=== PATIENT | female | born 1990 | race Caucasian/White ===

== ENCOUNTER 2017-12-08 20:33 | Inpatient (IN) ==
[2017-12-08] MEDS ORDERED: BUTORPHANOL 2 MG/ML VIAL IV PRN (20:48)
[2017-12-08 21:33] LABS: Basophils % 0.3 % (0.0-0.8); Eosinophils # 0.1 10*3/uL (0.0-0.87); Eosinophils % 1.2 % (0.00-10.9); Hematocrit 33.5 VOL% (35.7-47.0); Hemoglobin 11.1 GM/DL (12.0-16.0); Immature Granulocytes % 0.9 %; Immature Granulocytes Absolute 0.09 #; Lymphocytes # 2.1 10*3/uL (1.4-4.0); Lymphocytes % 20.3 % (21.3-54.2); Mean Corpuscular HGB Conc 33.1 GM/DL (32-36); Mean Corpuscular Hemoglobin 31 PG (27-34); Mean Corpuscular Volume 94.1 FL (87-102); Mean Platelet Volume 11.4 FL (9.6-12.0); Monocytes # 0.7 10*3/uL (0.11-0.8); Monocytes % 7.2 % (1.7-12.7); Neutrophils # 7.1 10*3/uL (1.4-7.4); Neutrophils % 70.1 % (38.7-73.9); Platelet Count 292 T/CUMM (130-400); Red Blood Count 3.56 MC/CUMM (3.8-5.5); Red Cell Distribution Width 13.3 % (9.3-17.3); White Blood Count 10.1 T/CUMM (4-12)
[2017-12-08 22:11] LABS: Albumin 2.9 G/DL (3.4-5.0); Bilirubin,Total 0.4 MG/DL (0.2-1.0); Calcium 9.2 MG/DL (8.5-10.1); Osmolality,Calculated 273.5 MOS/KG (273-304); Potassium 3.7 MMOL/L (3.5-5.1)
[2017-12-08] MEDS ORDERED: hydrALAZINE 20 MG/1 ML VIAL IV PRN (22:26)
[2017-12-08] MEDS: LABETALOL 100 MG TABLET PO SCH (22:35)
[2017-12-08 23:20] LABS: INR 0.9; PT Patient Result 9.3 SECS; Partial Thromboplastin Time 24.9 SECS (0-40)
[2017-12-09] MEDS: LACTATED RINGERS 1,000 ML IV SCH ×4 (00:01→22:11)
[2017-12-09] MEDS ORDERED: diphenhydrAMINE CAP 50 MG CAPSULE PO PRN (03:00)
[2017-12-09] MEDS: MEPERIDINE 50 MG/1 ML VIAL IV PRN ×4 (05:10→22:12)
[2017-12-09] MEDS: ONDANSETRON 4 MG/2 ML VIAL IV PRN ×3 (05:11→22:11)
[2017-12-09] MEDS: LABETALOL 100 MG TABLET PO SCH ×2 (09:52→21:08)
[2017-12-10] MEDS ORDERED: OXYTOCIN/LR 20 UNIT/1,000 ML BAG IV SCH (06:00)
[2017-12-10] MEDS: ONDANSETRON 4 MG/2 ML VIAL IV PRN (07:26)
[2017-12-10] MEDS: MEPERIDINE 50 MG/1 ML VIAL IV PRN (07:28)
[2017-12-10] MEDS ORDERED: CITRIC ACID/SODIUM CITRATE 30 ML UDCUP PO ONE (07:59)
[2017-12-10] MEDS ORDERED: FAMOTIDINE 20 MG/2 ML VIAL IV ONE (07:59)
[2017-12-10] MEDS ORDERED: LACTATED RINGERS 1,000 ML IV ONE (07:59)
[2017-12-10] MEDS ORDERED: hydrOXYzine HCL 25 MG/1 ML VIAL IM PRN (08:00)
[2017-12-10] MEDS ORDERED: PROMETHAZINE 25 MG/1 ML VIAL IM ONE (08:00)
[2017-12-10] MEDS ORDERED: fentaNYL 2 MCG/ROPIV 0.2% EPID 150 ML EPIDURAL SCH (08:00)
[2017-12-10] MEDS ORDERED: diphenhydrAMINE 50 MG/1 ML VIAL IV PRN ×2 (08:00)
[2017-12-10] MEDS ORDERED: ePHEDrine 50 MG/ML AMP IV PRN (08:00)
[2017-12-10] MEDS: LABETALOL 100 MG TABLET PO SCH ×2 (09:13→21:41)
[2017-12-10] MEDS ORDERED: miSOPROStol 200 MCG TABLET ONE (10:02)
[2017-12-10] MEDS ORDERED: BENZOCAINE 20%/MENTHOL 0.5% SPRAY 56 GM CAN TOP PRN (10:54)
[2017-12-10] MEDS ORDERED: ACETAMINOPHEN 325 MG TABLET PO PRN (10:54)
[2017-12-10] MEDS ORDERED: WITCH HAZEL PADS 100/JAR TOP PRN (10:54)
[2017-12-10] MEDS ORDERED: RHO(D) IMMUNE GLOBULIN 300 MCG SYRINGE IM ONE (10:54)
[2017-12-10] MEDS ORDERED: DIPH/TET/ACEL PERT BOOSTER VACCINE 0.5 ML VIAL IM ONE (10:54)
[2017-12-10] MEDS ORDERED: ONDANSETRON 4 MG/2 ML VIAL IV PRN (10:54)
[2017-12-10] MEDS ORDERED: oxyCODONE/ACETAMINOPHEN 5-325 MG TABLET PO PRN (10:54)
[2017-12-10] MEDS ORDERED: MEASLES/MUMPS/RUBELLA VACCINE 0.5 ML VIAL SUBCUT ONE (10:54)
[2017-12-10] MEDS ORDERED: LANOLIN 50% CREAM 0.3 OZ TUBE TOP PRN (10:54)
[2017-12-10] MEDS ORDERED: OXYTOCIN/LR 20 UNIT/1,000 ML BAG IV ONE (10:54)
[2017-12-10] MEDS ORDERED: BISACODYL 10 MG SUPP RECTAL PRN (10:54)
[2017-12-10] MEDS ORDERED: HYDROCORTISONE 2.5% RECTAL CREAM 30 GM TUBE TOP PRN (10:54)
[2017-12-10 12:13] LABS: Apearance,Urine CLEAR (Clear); Bacteria,Urine Occasional /HPF (Few); Bilirubin,Urine Negative (Negative); Blood, Urine Small mg/dL (Negative); Glucose,Urine (UA) Negative (Negative); Ketones,Urine 20 mg/dL (Negative); Mucus,Urine Occasional /LPF (Occasional); Nitrite,Urine Negative (Negative); Protein,Urine Negative; RBC,Urine 1 /HPF (0-4); Squamous Epithelial Cell,Urine Occasional /HPF (0-10); Urine Color Yellow (Yellow); Urine Specific Gravity 1.009 (1.001-1.035); Urine Urobilinogen < 2.0 EU/DL (0.2-1.0); WBC,Urine 1 /HPF (0-6)
[2017-12-10] MEDS: IBUPROFEN 800 MG TABLET PO PRN (15:58)
[2017-12-10] MEDS: oxyCODONE/ACETAMINOPHEN 5-325 MG TABLET PO PRN (21:41)
[2017-12-10] MEDS: DOCUSATE SODIUM 100 MG CAPSULE PO SCH (21:41)
[2017-12-11] MEDS: oxyCODONE/ACETAMINOPHEN 5-325 MG TABLET PO PRN ×3 (05:41→17:52)
[2017-12-11 06:45] LABS: Basophils % 0.3 % (0.0-0.8); Eosinophils # 0.1 10*3/uL (0.0-0.87); Eosinophils % 0.9 % (0.00-10.9); Hematocrit 26.7 VOL% (35.7-47.0); Hemoglobin 9.1 GM/DL (12.0-16.0); Immature Granulocytes % 0.9 %; Lymphocytes # 1.7 10*3/uL (1.4-4.0); Lymphocytes % 15.6 % (21.3-54.2); Mean Corpuscular HGB Conc 34.1 GM/DL (32-36); Mean Corpuscular Hemoglobin 31 PG (27-34); Mean Corpuscular Volume 92.1 FL (87-102); Mean Platelet Volume 11.4 FL (9.6-12.0); Monocytes # 0.9 10*3/uL (0.11-0.8); Monocytes % 8.1 % (1.7-12.7); Neutrophils # 7.9 10*3/uL (1.4-7.4); Neutrophils % 74.2 % (38.7-73.9); Platelet Count 227 T/CUMM (130-400); Red Cell Distribution Width 13.5 % (9.3-17.3); White Blood Count 10.7 T/CUMM (4-12)
[2017-12-11] MEDS: DOCUSATE SODIUM 100 MG CAPSULE PO SCH ×2 (08:55→21:21)
[2017-12-11] MEDS: LABETALOL 100 MG TABLET PO SCH ×2 (08:55→21:20)
[2017-12-11] MEDS: IBUPROFEN 800 MG TABLET PO PRN ×2 (11:42→17:52)
[2017-12-12] MEDS: oxyCODONE/ACETAMINOPHEN 5-325 MG TABLET PO PRN ×2 (04:13→10:40)
[2017-12-12 08:30] VITALS: BP 130/76
[2017-12-12] MEDS: LABETALOL 100 MG TABLET PO SCH (09:12)
[2017-12-12] MEDS: DOCUSATE SODIUM 100 MG CAPSULE PO SCH (09:12)
[2017-12-12] MEDS: IBUPROFEN 800 MG TABLET PO PRN (10:40)
== END 2017-12-12 12:00 | disposition home or self-care (01) | DRG 560 ==
LOC: N.LDOUT 20:33 → N.LD 20:40 → N.OB 12-10 13:31
PROVIDERS: ADMIT Specialist; ATTEND Specialist

== ENCOUNTER 2017-12-15 07:46 | Inpatient (IN) ==
[2017-12-15] MEDS ORDERED: SODIUM CHLORIDE 0.9% 1,000 ML IV STA (07:55)
[2017-12-15] MEDS ORDERED: FUROSEMIDE 40 MG/4 ML VIAL IV STA (08:12)
[2017-12-15] MEDS ORDERED: FUROSEMIDE 40 MG/4 ML VIAL ONE (08:17)
[2017-12-15] MEDS ORDERED: VECURONIUM 10 MG VIAL IV STA (08:24)
[2017-12-15] MEDS ORDERED: ETOMIDATE 20 MG/10 ML VIAL IV ONE ×2 (08:29→11:29)
[2017-12-15] MEDS ORDERED: NITROGLYCERIN IV SCH (08:30)
[2017-12-15 08:31] LABS: Basophils % 0.3 % (0.0-0.8); Eosinophils # 0.3 10*3/uL (0.0-0.87); Eosinophils % 2.4 % (0.00-10.9); Hematocrit 30.7 VOL% (35.7-47.0); Hemoglobin 10.3 GM/DL (12.0-16.0); Immature Granulocytes % 0.8 %; Lymphocytes # 1.7 10*3/uL (1.4-4.0); Lymphocytes % 13.3 % (21.3-54.2); Mean Corpuscular HGB Conc 33.6 GM/DL (32-36); Mean Corpuscular Hemoglobin 31 PG (27-34); Mean Corpuscular Volume 93.3 FL (87-102); Mean Platelet Volume 10.8 FL (9.6-12.0); Monocytes # 0.6 10*3/uL (0.11-0.8); Monocytes % 4.8 % (1.7-12.7); Neutrophils # 9.8 10*3/uL (1.4-7.4); Neutrophils % 78.4 % (38.7-73.9); Platelet Count 359 T/CUMM (130-400); Red Blood Count 3.29 MC/CUMM (3.8-5.5); Red Cell Distribution Width 13.5 % (9.3-17.3); White Blood Count 12.5 T/CUMM (4-12)
[2017-12-15] MEDS ORDERED: MAGNESIUM SULF RIDER 4 GM in PREMIX 1 EACH IV STA (08:36)
[2017-12-15] MEDS ORDERED: MAGNESIUM SULF RIDER 100 ML IV ONE (08:41)
[2017-12-15] MEDS ORDERED: PROPOFOL 1,000 MG/100 ML BOTTLE IV ONE (08:41)
[2017-12-15 08:46] LABS: PT Patient Result 10.1 SECS; Partial Thromboplastin Time 27.6 SECS (0-40)
[2017-12-15] MEDS ORDERED: ACETAMINOPHEN 325 MG TABLET PO PRN (08:48)
[2017-12-15] MEDS ORDERED: ONDANSETRON 4 MG/2 ML VIAL IV PRN (08:48)
[2017-12-15] MEDS ORDERED: LABETALOL 20 MG/4 ML SYRINGE IV PRN (08:53)
[2017-12-15] MEDS ORDERED: hydrALAZINE 20 MG/1 ML VIAL IV PRN (08:53)
[2017-12-15] MEDS ORDERED: NITROGLYCERIN DRIP 50 MG/250 ML BOTTLE IV SCH (09:00)
[2017-12-15] MEDS ORDERED: DOCUSATE SODIUM 100 MG CAPSULE PO SCH (09:00)
[2017-12-15 09:05] LABS: Alanine Aminotransferase 14 U/L (13-56); Albumin 2.4 G/DL (3.4-5.0); Alkaline Phosphatase 108 U/L (45-117); Aspartate Amino Transferase 19 U/L (0-37); Bilirubin,Total < 0.39 MG/DL (0.2-1.0); Blood Urea Nitrogen 8 MG/DL (7-18); Calcium 8.4 MG/DL (8.5-10.1); Glucose 91 MG/DL (74-106); Osmolality,Calculated 270.8 MOS/KG (273-304); Sodium 137 MMOL/L (136-145); Total Protein 6.1 G/DL (6.4-8.3); Troponin I Only 0.065 NG/ML (0.00-0.045)
[2017-12-15] MEDS: PROPOFOL 1,000 MG/100 ML BOTTLE IV SCH ×3 (09:13→21:30)
[2017-12-15 09:21] LABS: ABG Base Excess -3.3 MMOL/L (-2.5-2.5); ABG HCO3 21.6 MMOL/L (20-26); ABG Oxygen Saturation 99.3 % (95-100); ABG PCO2 42.2 MM HG (35-48); ABG PH 7.333 (7.35-7.45); ABG TCO2 20.3 MMOL/L (23-27)
[2017-12-15 11:06] LABS: Apearance,Urine CLEAR (Clear); Bilirubin,Urine Negative (Negative); Blood, Urine Small mg/dL (Negative); Glucose,Urine (UA) Negative (Negative); Ketones,Urine Negative (Negative); Mucus,Urine Occasional /LPF (Occasional); Nitrite,Urine Negative (Negative); Protein,Urine Negative; RBC,Urine <1 /HPF (0-4); Urine Color Colorless (Yellow); Urine Specific Gravity 1.011 (1.001-1.035); Urine Urobilinogen < 2.0 EU/DL (0.2-1.0); WBC,Urine <1 /HPF (0-6)
[2017-12-15] MEDS ORDERED: VECURONIUM 10 MG VIAL IV ONE (11:29)
[2017-12-15] MEDS: MORPHINE 2 MG/1 ML SYRINGE IV PRN ×3 (11:59→23:00)
[2017-12-15] MEDS ORDERED: metOLazone 5 MG TABLET PO SCH (12:30)
[2017-12-15 12:42] LABS: Troponin I Only 0.467 NG/ML (0.00-0.045)
[2017-12-15] MEDS: VALSARTAN 80 MG TABLET PO SCH ×2 (13:38→21:49)
[2017-12-15] MEDS: PANTOPRAZOLE 40 MG VIAL IV SCH (13:38)
[2017-12-15] MEDS: ENOXAPARIN 40 MG/0.4 ML SYRINGE SUBCUT SCH (13:39)
[2017-12-15] MEDS: DOCUSATE SODIUM 100 MG/10 ML UDCUP PO SCH ×2 (13:39→21:49)
[2017-12-15] MEDS: SPIRONOLACTONE 25 MG TABLET PO SCH ×2 (13:40→21:49)
[2017-12-15] MEDS ORDERED: INFLUENZA VIRUS VACCINE 0.5 ML SYRINGE IM ONE (14:08)
[2017-12-15] MEDS ORDERED: PNEUMOCOCCAL VACCINE (23 VALENT) 0.5 ML VIAL IM ONE (14:30)
[2017-12-15] MEDS: METOPROLOL TARTRATE 25 MG TABLET PO SCH ×2 (15:43→21:49)
[2017-12-15] MEDS ORDERED: FUROSEMIDE 40 MG/4 ML VIAL IV SCH (16:00)
[2017-12-15 19:38] LABS: Troponin I Only 0.659 NG/ML (0.00-0.045)
[2017-12-16] MEDS: POTASSIUM CHLORIDE RIDER 10 MEQ in PREMIX 1 EACH IV PRN ×4 (03:10→08:02)
[2017-12-16] MEDS: MORPHINE 2 MG/1 ML SYRINGE IV PRN ×2 (03:15→07:10)
[2017-12-16 04:05] LABS: Allen Test Positive; Pt O2 Delivery Device Ventilator
[2017-12-16 04:08] LABS: ABG Base Excess 2.9 MMOL/L (-2.5-2.5); ABG HCO3 24.2 MMOL/L (20-26); ABG Oxygen Saturation 99.2 % (95-100); ABG PCO2 26.8 MM HG (35-48); ABG PH 7.573 (7.35-7.45)
[2017-12-16 04:09] LABS: ABG PO2 515.2 MM HG (80-95)
[2017-12-16] MEDS: PROPOFOL 1,000 MG/100 ML BOTTLE IV SCH ×2 (04:11→10:28)
[2017-12-16 04:31] LABS: Basophils % 0.2 % (0.0-0.8); Eosinophils # 0.2 10*3/uL (0.0-0.87); Eosinophils % 1.5 % (0.00-10.9); Hematocrit 29.5 VOL% (35.7-47.0); Hemoglobin 9.9 GM/DL (12.0-16.0); Immature Granulocytes % 0.9 %; Lymphocytes % 17.8 % (21.3-54.2); Mean Corpuscular HGB Conc 33.6 GM/DL (32-36); Mean Corpuscular Hemoglobin 31 PG (27-34); Mean Corpuscular Volume 92.5 FL (87-102); Mean Platelet Volume 10.6 FL (9.6-12.0); Monocytes % 9.1 % (1.7-12.7); Neutrophils # 7.9 10*3/uL (1.4-7.4); Neutrophils % 70.5 % (38.7-73.9); Platelet Count 350 T/CUMM (130-400); Red Blood Count 3.19 MC/CUMM (3.8-5.5); Red Cell Distribution Width 13.4 % (9.3-17.3); White Blood Count 11.3 T/CUMM (4-12)
[2017-12-16 05:06] LABS: Calcium 8.6 MG/DL (8.5-10.1); Osmolality,Calculated 277.5 MOS/KG (273-304); Potassium 3.7 MMOL/L (3.5-5.1); Risk Ratio 6.23
[2017-12-16] MEDS: DOCUSATE SODIUM 100 MG/10 ML UDCUP PO SCH ×2 (08:14→20:07)
[2017-12-16] MEDS: VALSARTAN 80 MG TABLET PO SCH ×2 (08:14→20:07)
[2017-12-16] MEDS: SPIRONOLACTONE 25 MG TABLET PO SCH ×2 (08:15→20:08)
[2017-12-16] MEDS: METOPROLOL TARTRATE 25 MG TABLET PO SCH ×2 (08:15→20:07)
[2017-12-16] MEDS: ASPIRIN CHEW 81 MG TABLET PO SCH (08:16)
[2017-12-16] MEDS: OMEGA 3 ACID ETHYL ESTERS 1 GM CAPSULE PO SCH ×2 (08:16→20:07)
[2017-12-16] MEDS: ENOXAPARIN 40 MG/0.4 ML SYRINGE SUBCUT SCH (08:17)
[2017-12-16] MEDS: PANTOPRAZOLE 40 MG VIAL IV SCH (08:17)
[2017-12-16] MEDS: FUROSEMIDE 40 MG/4 ML VIAL IV SCH ×2 (08:20→16:21)
[2017-12-16 08:59] LABS: ABG HCO3 26.2 MMOL/L (20-26); ABG Oxygen Saturation 99.7 % (95-100); ABG PCO2 36.6 MM HG (35-48); ABG PH 7.456 (7.35-7.45); ABG TCO2 23.2 MMOL/L (23-27)
[2017-12-16] MEDS ORDERED: ATORVASTATIN 40 MG TABLET PO SCH (21:00)
[2017-12-17 04:50] LABS: Basophils # 0.1 10*3/uL (0.0-0.2); Basophils % 0.5 % (0.0-0.8); Eosinophils # 0.3 10*3/uL (0.0-0.87); Eosinophils % 3.1 % (0.00-10.9); Hematocrit 33.7 VOL% (35.7-47.0); Hemoglobin 11.4 GM/DL (12.0-16.0); Immature Granulocytes % 1.5 %; Immature Granulocytes Absolute 0.16 #; Lymphocytes # 2.3 10*3/uL (1.4-4.0); Lymphocytes % 21.2 % (21.3-54.2); Mean Corpuscular HGB Conc 33.8 GM/DL (32-36); Mean Corpuscular Hemoglobin 31 PG (27-34); Mean Corpuscular Volume 90.8 FL (87-102); Mean Platelet Volume 10.6 FL (9.6-12.0); Monocytes % 9.5 % (1.7-12.7); Neutrophils % 64.2 % (38.7-73.9); Platelet Count 380 T/CUMM (130-400); Red Blood Count 3.71 MC/CUMM (3.8-5.5); Red Cell Distribution Width 13.5 % (9.3-17.3); White Blood Count 10.9 T/CUMM (4-12)
[2017-12-17 05:21] LABS: Calcium 8.8 MG/DL (8.5-10.1); Osmolality,Calculated 278.7 MOS/KG (273-304); Potassium 3.5 MMOL/L (3.5-5.1)
[2017-12-17] MEDS: FUROSEMIDE 40 MG/4 ML VIAL IV SCH ×2 (07:37→16:21)
[2017-12-17] MEDS ORDERED: ALBUTEROL/IPRATROPIUM 3 ML NEB RESP TX PRN (08:35)
[2017-12-17] MEDS: DOCUSATE SODIUM 100 MG/10 ML UDCUP PO SCH ×2 (09:37→21:55)
[2017-12-17] MEDS: VALSARTAN 80 MG TABLET PO SCH ×2 (09:37→21:55)
[2017-12-17] MEDS: SPIRONOLACTONE 25 MG TABLET PO SCH ×2 (09:37→21:56)
[2017-12-17] MEDS: METOPROLOL TARTRATE 25 MG TABLET PO SCH ×2 (09:38→21:55)
[2017-12-17] MEDS: OMEGA 3 ACID ETHYL ESTERS 1 GM CAPSULE PO SCH ×2 (09:38→21:56)
[2017-12-17] MEDS: ENOXAPARIN 40 MG/0.4 ML SYRINGE SUBCUT SCH (09:38)
[2017-12-17] MEDS: ASPIRIN CHEW 81 MG TABLET PO SCH (09:38)
[2017-12-17] MEDS: LEVOFLOXACIN 750 MG TABLET PO SCH (09:53)
[2017-12-17] MEDS ORDERED: ATORVASTATIN 10 MG TABLET PO SCH (21:00)
[2017-12-18 05:21] LABS: Basophils # 0.1 10*3/uL (0.0-0.2); Basophils % 0.6 % (0.0-0.8); Eosinophils # 0.4 10*3/uL (0.0-0.87); Lymphocytes # 2.5 10*3/uL (1.4-4.0); Lymphocytes % 25.3 % (21.3-54.2); Mean Corpuscular HGB Conc 33.3 GM/DL (32-36); Mean Corpuscular Hemoglobin 31 PG (27-34); Mean Platelet Volume 10.5 FL (9.6-12.0); Monocytes # 0.8 10*3/uL (0.11-0.8); Monocytes % 8.6 % (1.7-12.7); Neutrophils # 5.9 10*3/uL (1.4-7.4); Neutrophils % 59.5 % (38.7-73.9); Platelet Count 377 T/CUMM (130-400); Red Blood Count 3.87 MC/CUMM (3.8-5.5); Red Cell Distribution Width 13.1 % (9.3-17.3); White Blood Count 9.8 T/CUMM (4-12)
[2017-12-18 05:55] LABS: Calcium 9.2 MG/DL (8.5-10.1); Osmolality,Calculated 278.8 MOS/KG (273-304); Potassium 3.5 MMOL/L (3.5-5.1)
[2017-12-18] MEDS: DOCUSATE SODIUM 100 MG/10 ML UDCUP PO SCH (09:04)
[2017-12-18] MEDS: ENOXAPARIN 40 MG/0.4 ML SYRINGE SUBCUT SCH (09:04)
[2017-12-18] MEDS: FUROSEMIDE 40 MG/4 ML VIAL IV SCH (09:04)
[2017-12-18] MEDS: METOPROLOL TARTRATE 25 MG TABLET PO SCH (09:05)
[2017-12-18] MEDS: LEVOFLOXACIN 750 MG TABLET PO SCH (09:05)
[2017-12-18] MEDS: VALSARTAN 80 MG TABLET PO SCH (09:05)
[2017-12-18] MEDS: SPIRONOLACTONE 25 MG TABLET PO SCH (09:05)
[2017-12-18] MEDS: ASPIRIN CHEW 81 MG TABLET PO SCH (09:06)
[2017-12-18] MEDS: OMEGA 3 ACID ETHYL ESTERS 1 GM CAPSULE PO SCH (09:06)
[2017-12-18 11:45] VITALS: BP 113/72
== END 2017-12-18 16:53 | disposition home or self-care (01) | DRG 561 ==
LOC: EDUNIT# → EDBD → N.ED 07:46 → N.EDINP 08:48 → N.CC 10:48 → N.TELES 12-17 13:03
PROVIDERS: ADMIT Family Medicine; ATTEND Family Medicine